=== PATIENT | male | born 2000 | race Caucasian/White ===

== ENCOUNTER 2019-11-23 01:57 | Emergency (ER) | payer MEDICAID ==
[~2019-11-23] VITALS: Ht 172.7 cm; Wt 68.0 kg
[2019-11-23] MEDS ORDERED: LIDOCAINE HCL/PF 1% 10 MG/ML 5ML VIAL IJ ONE (03:30)
[2019-11-23] MEDS ORDERED: BACITRACIN ZINC OINT UDPKT TOP ONE (03:30)
[2019-11-23] MEDS ORDERED: TETANUS, DIPHTHERIA, PERTUSSIS VAC/PF 0.5ML (>7YR OLD) IM ONE (03:30)
[2019-11-23 04:01] LABS: BASOPHILS % 0.8 % (0.0-2.0); EOSINOPHILS % 3.4 % (0.0-5.0); HEMATOCRIT. 42.6 % (42.0-52.0); HEMOGLOBIN. 14.7 g/dL (14.0-18.0); LYMPHOCYTES % 35.6 % (20.0-50.0); MEAN CORPUSCULAR HEMOGLOBIN 31.3 pg (28.0-32.0); MEAN CORPUSCULAR VOLUME 90.8 fL (80.0-94.0); MEAN PLATELET VOLUME 8.9 fl (7.4-10.4); MONOCYTES % 6.4 % (2.0-8.0); NEUTROPHILS % 53.8 % (40.0-76.0); PLATELET 240 x1000/uL (130-400); RED BLOOD CELL COUNT 4.69 mill/uL (4.7-6.1); RED CELL DISTRIBUTION WIDTH 12.5 % (11.6-14.6)
[2019-11-23 04:03] LABS: CHLORIDE 107 mEq/L (98-107)
[2019-11-23 04:06] LABS: ETHANOL BLOOD < 10 mg/dL
[2019-11-23 05:37] LABS: CLARITY URINE CLEAR (CLEAR); COLOR URINE YELLOW (YELLOW); KETONES URINE NEGATIVE (NEGATIVE); LEUKOCYTE ESTERASE URINE NEGATIVE (NEGATIVE); NITRITE URINE NEGATIVE (NEGATIVE); OCCULT BLOOD URINE NEGATIVE (NEGATIVE); PROTEIN URINE NEGATIVE (NEGATIVE); SPECIFIC GRAVITY URINE 1.025 (1.005-1.030); UROBILINOGEN URINE 0.2 E.U./dL (0.2-1.0)
[2019-11-23 05:50] LABS: *AMPHETAMINES SCREEN URINE NEGATIVE (NEGATIVE); *BARBITURATES SCREEN URINE NEGATIVE (NEGATIVE); *BENZODIAZEPINES SCREEN URINE PRESUMTIVE POSITIVE (NEGATIVE); *COCAINE SCREEN URINE NEGATIVE (NEGATIVE)
[2019-11-23 05:51] LABS: CANNABINOID URINE SCREEN PRESUMTIVE POSITIVE (NEGATIVE); METHADONE URINE SCREEN NEGATIVE (NEGATIVE); OPIATES URINE SCREEN NEGATIVE (NEGATIVE); PHENCYCLIDINE URINE SCREEN NEGATIVE (NEGATIVE)
[2019-11-23] MEDS ORDERED: SODIUM CHLORIDE 0.9% 1,000 ML IV ONE (06:19)
[2019-11-23 10:30] VITALS: BP 128/73
== END 2019-11-23 10:35 | disposition home or self-care (01) ==
LOC: ER 01:57
DX: S51.812A Laceration without foreign body of left forearm, initial encounter (principal); S61.411A Laceration without foreign body of right hand, initial encounter; F32.9 Major depressive disorder, single episode, unspecified; F13.10 Sedative, hypnotic or anxiolytic abuse, uncomplicated; F12.10 Cannabis abuse, uncomplicated; X78.1XXA Intentional self-harm by knife, initial encounter; Y93.89 Activity, other specified; Y92.018 Other place in single-family (private) house as the place of occurrence of the external cause
CPT/HCPCS: 12005; 36415; 80053; 80305; 80320; 81003; 85025; 90471; 90715; 99284; J3490; J7030; Z7610; G0480